=== PATIENT | female | born 1960 | race Caucasian/White ===

== ENCOUNTER 2016-08-26 09:01 | Day surgery (SDC) | payer MEDICARE, OTHER ==
[~2016-08-26 09:01] MED LIST: LACTATED RINGERS 1,000 ML IV SCH
[2016-08-26] MEDS ORDERED: IV START KIT ONE (09:20)
[2016-08-26] MEDS ORDERED: LACTATED RINGERS 1,000 ML ONE (09:20)
[2016-08-26] MEDS ORDERED: FENTANYL 250 MCG/5 ML AMP ONE (09:28)
[2016-08-26] MEDS ORDERED: MIDAZOLAM HCL 1 MG/ML 2ML VIAL ONE (09:28)
[2016-08-26] MEDS ORDERED: PROPOFOL 20 ML IV ONE ×3 (09:28→11:24)
[2016-08-26 15:28] LABS: HELICOBACTER PYLORII DETECTION NEGATIVE (NEGATIVE)
--- NOTE | 2016-08-28 13:00 | SURGPATH ---
[facility] [address] [place] [id number] Patient Name: ZACKARY MACIAS MR#: [id number] : 1960 Gender: F Specimen #: [id number] Collected: 08/26/2016 Received: 08/27/2016 Reported: 08/28/2016 Submitting Phys: MAYO ANDERSON Copy To Phys: [facility] DELC[facility] Natalie Clinical History / Pre-Operative Diagnosis: CONSTIPATION; PERIUMBILICAL PAIN WITH DEFECATION; RULE OUT GIARDIA, CELIAC SPRUE AND GASTRITIS Specimen Source / Surgical Procedure Performed: #1-DUODENAL BIOPSY; #2-ANTRAL BIOPSY Interpretation: 1. DUODENUM, BIOPSY: - SMALL BOWEL MUCOSA SHOWING NO DIAGNOSTIC ABNORMALITIES. - NO EVIDENCE OF CELIAC DISEASE. - NO EVIDENCE OF SIGNIFICANT INFLAMMATION, VILLOUS BLUNTING, OR MALIGNANCY. 2. GASTRIC ANTRUM, BIOPSY: - MILD REACTIVE GASTROPATHY. - NO MICROORGANISMS IDENTIFIED WITH ROUTINE STAINING. - NO EVIDENCE OF SIGNIFICANT INFLAMMATION, INTESTINAL METAPLASIA, OR MALIGNANCY. Electronically Signed Out Jonatan Umanzor M.D., Ph.D. Gross Description: #1 The specimen is received in a formalin filled container labeled with the patient's name and "duodenal biopsy". Two marrero biopsies are each 0.3 cm. Totally embedded in cassette #1. #2 The specimen is received in a formalin filled container labeled with the patient's name and "antral biopsy". A single marrero biopsy is 0.4 cm. Totally embedded in cassette #2. Rafael Samuel PTucker. Microscopic Description: 1. Examination of multiple levels from the duodenum biopsy shows two fragments of histologically unremarkable small bowel mucosa. The villous architecture is intact without evidence of blunting. There is no evidence of increased intraepithelial lymphocytes. There is no evidence of significant inflammation or malignancy. 2. Examination of multiple levels from gastric antrum biopsy shows a single fragment of gastric mucosa with superficial smooth muscle proliferation associated with tortuous glands. The lamina propria is otherwise not expanded. No microorganisms identified with routine staining. There is no evidence of significant inflammation, intestinal metaplasia, or malignancy. 1: [id number] 2: 49590 K31.9
== END 2016-08-26 11:59 | disposition home or self-care (01) ==
LOC: SDC 09:01
PROVIDERS: ATTEND Internal Medicine Gastroenterology
DX: K31.7 Polyp of stomach and duodenum (principal); K29.70 Gastritis, unspecified, without bleeding; K57.90 Diverticulosis of intestine, part unspecified, without perforation or abscess without bleeding; K59.8 Other specified functional intestinal disorders; I10 Essential (primary) hypertension; M79.1 Myalgia
CPT/HCPCS: 87081; 43239; 45378; J3010; J2250; J7120